=== PATIENT | male | born 1985 | race Caucasian/White ===

== ENCOUNTER 2023-03-05 20:27 | Emergency (ER) | payer OTHER ==
[2023-03-05 20:48] VITALS: O2SAT 98
--- NOTE | 2023-03-05 20:50 | ED Physician Documentation ---
History of Present Illness - Stated complaint Stated Complaint: DIZZY/HEADACHE/SHAKING - Chief complaint Chief Complaint: General - History obtained from History obtained from: Patient - Additonal information Additional information: HPI from patient. Patient has been experiencing episodic vertigo for several months. He has been taking meclizine and Dramamine with varying success. He is scheduled to see an ENT physician later this month for this problem. His chief concern is that since yesterday, he has developed a headache that is both frontal and occipital, without exacerbating nor ameliorating factors. Of even greater concern to the patient, he had 2 episodes of shaking of all 4 extremities. He did not lose consciousness, the episodes lasted no more than 1 minute, and suddenly stopped on their own. He also notes that since yesterday he has had left eye erythema without injury. He denies numbness, weakness, visual change, bowel/bladder incontinence. Review of Systems Constitutional: denies: Fever, Chills, Sweats Eyes: denies: Loss of vision, Decreased vision, Photophobia Cardiac: reports: Reviewed and negative Respiratory: reports: Reviewed and negative GI: reports: Reviewed and negative : denies: Unable to Void, Incontinent Neurologic: reports: Headache. denies: Focal weakness, Numbness, Confused, Altered mental status, Head injury PD PAST MEDICAL HISTORY - Past Medical History Past Medical History: No - Past Surgical History Past Surgical History: No - Present Medications Home Medications: Ambulatory Orders Medication Instructions Recorded Confirmed LORazepam [Lorazepam] 1 mg PO HS PRN #14 tab 03/05/23 - Allergies Allergies/Adverse Reactions: Allergies Allergy/AdvReac Type Severity Reaction Status Date / Time No Known Drug Allergies Allergy Verified 03/05/23 20:42 - Social History Does the pt smoke?: No Smoking Status: Never smoker Does the pt drink ETOH?: No Does the pt have substance abuse?: No - Immunizations Immunizations are current?: Yes - POLST Patient has POLST: No PD ED PE NORMAL - Vitals Vital signs reviewed: Yes - General General: Alert and oriented X 3, No acute distress, Well developed/nourished - HEENT HEENT: PERRL, EOMI, Moist mucous membranes - Neck Neck: Supple, no meningeal sign - Cardiac Cardiac: No murmur - Respiratory Respiratory: No respiratory distress, Clear bilaterally - Abdomen Abdomen: Soft, Non tender - Neuro Neuro: Alert and oriented X 3, 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, No motor deficit, No sensory def icit, Normal speech, Other (DTR bilateral patellae: 3+ with 2-3 beats clonus) Eye Opening: Spontaneous Motor: Obeys Commands Verbal: Oriented GCS Score: 15 PD ED PE EXPANDED - Eyes Eyes: Injected conj/sclera (mild left conjunctival injection) - Cardiac Cardiac: Tachy, Regular Rhythm Results - Vitals Vitals: Vital Signs - 24 hr 03/05/23 03/05/23 20:35 22:42 Temperature 37.0 C 37.0 C Heart Rate 107 H 88 Respiratory 18 16 Rate Blood Pressure 148/94 H 138/88 H O2 Saturation 98 98 Oxygen O2 Source Room air - Labs Labs: Laboratory Tests 03/05/23 03/05/23 21:09 21:09 WBC 5.6 RBC 4.78 Hgb 14.6 Hct 44.2 MCV 92.5 MCH 30.5 MCHC 33.0 RDW 12.5 Plt Count 248 MPV 9.7 Neut # (Auto) 3.6 Lymph # (Auto) 1.4 L [place] # (Auto) 0.4 Eos # (Auto) 0.2 Baso # (Auto) 0.1 Absolute Nucleated RBC 0.00 Nucleated RBC % 0.0 Sodium 136 Potassium 3.7 Chloride 101 Carbon Dioxide 26 Anion Gap 9.0 BUN 10 Creatinine 1.2 Estimated GFR (MDRD) 68 L Glucose 98 Calcium 9.0 Total Bilirubin 0.4 AST 17 ALT 22 Alkaline Phosphatase 57 Total Protein 7.2 Albumin 4.7 Globulin 2.5 Albumin/Globulin Ratio 1.9 - Rads (name of study) CTH Relevant Findings:: Prelim report reviewed, See rad report PD Medical Decision Making - ED course Complexity details: reviewed results, re-evaluated patient, considered differential, d/w patient ED course: Normal CBC (with the exception of low lymphocytes which is a noncontributory/insignificant finding), normal CMP (with exception of GFR 68). Normal CT scan of the head. Etiology of patient's symptoms is not apparent at this time. Results discussed with patient, return precautions reviewed. Advised him to contact his primary care provider to arrange for next available appointment for follow-up. Departure - Departure Disposition: 01 Home, Self Care Clinical Impression: Vertigo, Headache Condition: Good Instructions: ED Cephalgia Unspecified, ED Insomnia, ED Vertigo Unspecified Prescriptions: LORazepam [Lorazepam] 1 mg PO HS PRN #14 tab PRN Reason: Insomnia Comments: There were no abnormalities on tonight's tests, including the blood tests, and the CT scan of your head. The cause of your symptoms is not apparent at this time. Further testing might be needed, but barring development of other signs/symptoms, such testing can proceed in the outpatient setting. Follow-up with your primary care provider, next available appointment, for reevaluation. Regarding your insomnia, I am providing you with a prescription for lorazepam. This is only meant to be used as needed for insomnia and not to be thought of as a long-term treatment for insomnia (there are medications better-suited to ongoing insomnia; you can discuss this with your primary care provider if it is an ongoing concern). Forms: PCP List Discharge Date/Time: 03/05/23 23:17
[2023-03-05 21:15] LABS: BASOPHILS # (AUTO) 0.1 10^3/uL (0.0-0.1); BASOPHILS % (AUTO) 1.1 %; EOSINOPHILS # (AUTO) 0.2 10^3/uL (0.0-0.7); EOSINOPHILS % (AUTO) 3.1 %; HCT - HEMATOCRIT 44.2 % (42.0-52.0); HGB - HEMOGLOBIN 14.6 g/dL (14.0-18.0); LYMPHOCYTES # (AUTO) 1.4 10^3/uL (1.5-3.5); MEAN CORPUSCULAR HEMOGLOBIN 30.5 pg (27.0-31.0); MEAN CORPUSCULAR VOLUME 92.5 fL (80.0-94.0); MEAN PLATELET VOLUME 9.7 fL (7.4-11.4); MONOCYTES # (AUTO) 0.4 10^3/uL (0.0-1.0); MONOCYTES % (AUTO) 6.8 %; NEUTROPHILS # (AUTO) 3.6 10^3/uL (1.5-6.6); NEUTROPHILS % (AUTO) 63.8 %; PLT - PLATELET COUNT 248 10^3/uL (130-450); RED BLOOD COUNT 4.78 10^6/uL (4.70-6.10); RED CELL DISTRIBUTION WIDTH 12.5 % (12.0-15.0); WHITE BLOOD COUNT 5.6 x10^3/uL (4.8-10.8)
[2023-03-05 21:36] LABS: ALBUMIN 4.7 g/dL (3.2-5.5); ALBUMIN/GLOBULIN RATIO 1.9 (1.0-2.2); BILIRUBIN,TOTAL 0.4 mg/dL (0.2-1.0); CREATININE 1.2 mg/dL (0.6-1.3); POTASSIUM 3.7 mmol/L (3.5-4.5); TOTAL PROTEIN 7.2 g/dL (6.4-8.9)
--- NOTE | 2023-03-05 21:55 | CT Report ---
PROCEDURE: HEAD WO INDICATIONS: headache TECHNIQUE: Noncontrast 4.5 mm thick angled axial sections acquired from the foramen magnum to the vertex. For r adiation dose reduction, the following was used: automated exposure control, adjustment of mA and/or kV according to patient size. COMPARISON: None. FINDINGS: Image quality: Excellent. CSF spaces: Basal cisterns are patent. No extra-axial fluid collections. Ventricles are normal in size and shape. Brain: No midline shift. No intracranial masses or hemorrhage. Sigala-white matter interface is norm al. Skull and face: Calvarium and visualized facial bones are intact, without suspicious lesions. Sinuses: Visualized sinuses and mastoids are clear. IMPRESSION: No acute intracranial pathology. Reviewed by: Floyd Fisher MD on 03/05/2023 9:53 PM [facility] Approved by: Floyd Fisher MD on 03/05/2023 9:53 PM [facility] Station ID: [id number]
[2023-03-05] MEDS ORDERED: LORazepam 0.5 MG TABLET PO STA (22:29)
[2023-03-05 22:52] VITALS: BP 138/88
== END 2023-03-05 23:17 | disposition home or self-care (01) ==
LOC: ED 20:27
DX: R42 Dizziness and giddiness (principal); R51.9 Headache, unspecified
CPT/HCPCS: 36415; 70450; 80053; 85025; 99284; A9270